=== PATIENT | female | born 1975 | race Caucasian/White ===

== ENCOUNTER 2022-03-05 14:24 | Emergency (ER) | payer SELFPAY ==
[~2022-03-05] VITALS: Ht 157.5 cm; Wt 63.5 kg
[2022-03-05] MEDS ORDERED: NAPROXEN250 MG PO (15:26)
== END 2022-03-05 16:18 | disposition home or self-care (01) ==
LOC: ER 14:32
DX: M25.561 Pain in right knee (principal); F41.9 Anxiety disorder, unspecified; F90.9 Attention-deficit hyperactivity disorder, unspecified type
CPT/HCPCS: 99283